=== PATIENT | female | born 1990 | race Caucasian/White ===

== ENCOUNTER 2017-01-18 12:13 | Emergency (ER) | payer BC ==
[~2017-01-18] VITALS: Ht 167.6 cm; Wt 121.0 kg
[2017-01-18 12:15] VITALS: TEMP 36.9; Ht 167.6 cm; Wt 121.0 kg
[2017-01-18] MEDS ORDERED: SODIUM CHLORIDE 0.9% 1000ML 1,000 ML IV STA (13:08)
[2017-01-18] MEDS ORDERED: ONDANSETRON INJ 2 MG/ML 2 ML VIAL IV STA (13:08)
[2017-01-18] MEDS ORDERED: MoRPHine SULFATE 10 MG/ML CARP/VIAL IV PRN (13:15)
[2017-01-18] MEDS ORDERED: OPTIRAY 320 IV PRN (13:15)
[2017-01-18 13:28] LABS: URINE APPEARANCE CLEAR (CLEAR); URINE BILIRUBIN NEG (NEG); URINE COLOR YELLOW; URINE EPITHELIAL CELL AUTO >30 /lpf (0-5); URINE NITRITE NEG (NEG); URINE SPECIFIC GRAVITY 1.012 (1.000-1.030); UROBILINOGEN NEG (NEG)
[2017-01-18] MEDS ORDERED: MoRPHine SULFATE 4 MG/ML 1 ML CARP\\VIAL IV PRN (13:30)
[2017-01-18 13:31] LABS: MANUAL MICROSCOPIC REQUIRED? NO; REVIEW REQ? NO
[2017-01-18 14:14] LABS: BASO % 0.4 %; BASO ABS # 0.03 K/uL (0-0.2); COMPLETE YES; EOS % 4.5 %; HEMATOCRIT 39.4 % (37-47); IG% 0.1 %; LYMPH % 29.7 %; LYMPH ABS # 2.37 K/uL (1.2-3.4); MEAN CELL VOLUME 90.4 fL (80-100); MEAN CORPUSCULAR HEMOGLOBIN 30.5 pg (25-34); MEAN CORPUSCULAR HGB CONC 33.8 g/dl (32-36); MEAN PLATELET VOLUME 10.8 fL (7.4-10.4); MONO % 8.8 %; NEUT % 56.5 %; PLATELET COUNT 320 K/uL (130-400); RED BLOOD COUNT 4.36 M/uL (4.2-5.4); WHITE BLOOD COUNT 7.99 K/uL (4.8-10.8)
[2017-01-18 14:22] LABS: ALT/SGPT 33 U/L (12-78); AST/SGOT 19 U/L (15-37); BLOOD UREA NITROGEN 8 mg/dl (7-18); BUN/CREATININE RATIO 13.6 (10-20); CALCIUM 8.9 mg/dl (8.5-10.1); CARBON DIOXIDE 27 mmol/L (21-32); CHLORIDE 106 mmol/L (98-107); CREATININE 0.58 mg/dl (0.60-1.20); GLUCOSE 82 mg/dl (70-99); POTASSIUM 3.9 mmol/L (3.5-5.1); SODIUM 137 mmol/L (136-145)
[2017-01-18 14:25] LABS: ALKALINE PHOSPHATASE 89 U/L (45-117)
--- NOTE | 2017-01-18 14:29 | DIAGNOSTIC IMAGING REPORT ---
ULTRASOUND OF THE PELVIS CLINICAL HISTORY: Right pelvic pain. COMPARISON STUDY: No priors. TECHNIQUE: Real-time, grayscale, and color flow sonography of the pelvis is performed transabdominally. Images are reviewed in the transverse and longitudinal planes. The patient declined the endovaginal examination. FINDINGS: Uterus: The uterus is normal in size and echotexture, measuring 9.2 x 3.5 x 5.1 cm. Endometrium: The endometrium is normal in appearance, and the endometrial stripe is normal in thickness measuring up to 0.7 cm. Ovaries: The ovaries are normal in size and morphology. The right ovary measures 3.8 x 2.5 x 3.2 cm and the left ovary measures 2.7 x 1.5 x 2.0 cm. A follicle is noted on the right. Normal Doppler waveforms are shown within both ovaries. Pelvis: There is no free fluid in the cul-de-sac. No concerning adnexal lesion is seen. IMPRESSION: 1. Unremarkable transabdominal sonographic assessment of the pelvis. 2. The patient declined the endovaginal examination. Electronically signed by: Doc Brandt M.D. 01/18/2017 2:28 PM Dictated Date/Time: 01/18/2017 2:27 PM
[2017-01-18] MEDS ORDERED: LEVE750T PO (14:41)
--- NOTE | 2017-01-18 16:10 | DIAGNOSTIC IMAGING REPORT ---
ABD/PELVIS IV AND ORAL CONT CT DOSE: 1077.42 mGycm HISTORY: Pain ABDOMINAL PAIN/GI TECHNIQUE: Multiaxial CT images of the abdomen and pelvis were performed following the use of intravenous and oral contrast. A dose lowering technique was utilized adhering to the principles of ALARA. COMPARISON STUDY: Pelvic ultrasound same date FINDINGS: Lung bases are clear. Liver is uniform throughout. Gallbladder is negative for distention. High density splenic cyst measuring 11 cm. No significant perisplenic fluid is present. Kidneys enhance uniformly. Bowel pattern is nonobstructive. The appendix is normal. Uterus is anteflexed. 1.8 cm right ovarian cyst. IMPRESSION: 1. 1.8 cm right ovarian cyst. 2. Normal appendix. 3. 11 cm hyperdense splenic cyst. 4. Otherwise normal study The above report was generated using voice recognition software. It may contain grammatical, syntax or spelling errors. Electronically signed by: Orville Paris M.D. 01/18/2017 4:09 PM Dictated Date/Time: 01/18/2017 4:05 PM
[2017-01-18 16:32] VITALS: BP 126/48; PULSE 67; O2SAT 100
--- NOTE | 2017-01-18 20:15 | EMERGENCY ROOM VISIT NOTE ---
ED Visit Note First contact with patient: 12:20 Chief Complaint: Abdominal pain. History of Present Illness: Ms. Bain is a 26 year-old white female who ambulates into the ED accompanied by male friend complaining of right lower quadrant abdominal pain. Historically patient reports significant past medical history and denies asked to intestinal disorders and surgeries. Patient was referred to the ED by [facility] for her right lower quadrant pain. Patient reports a gradual onset of right lower quadrant abdominal pain that started approximately 6 hours ago. Since that time the pain has been constant. The pain is currently described as sharp. The pain is nonradiating. She rates her discomfort 6/10. The pain worsens with standing and ambulating and is improved by lying semierect. She has not taken any medications for pain prior to arrival at the hospital. Associated with her pain she's been nauseated but has not vomited. Patient denies fevers, chills, sweats, skin eruptions, skin color changes, upper respiratory tract symptoms, shortness of breath, chest pain, diarrhea, constipation, rectal bleeding, black/tarry stools, urinary symptoms, hematuria, vaginal bleeding, vaginal discharge, back/flank pain. Review of Systems: As noted above in history of present illness. All body systems were reviewed and found to be negative as noted above. Past Medical History: Seizure disorder, kidney stones, status post laminectomy. Current Medications: Levetiracetam. Allergies to Medications: Patient denies. Social History: Patient is currently employed; she feels safe in her home environment; she denies tobacco use and admits to alcohol use. Physical Examination: Vital Signs: Date Time Temp Pulse Resp B/P (MAP) Pulse Ox O2 Delivery O2 Flow Rate FiO2 01/18/17 14:29 67 18 120/84 100 Room Air 01/18/17 13:19 76 16 124/84 98 Room Air 01/18/17 12:15 36.9 76 18 143/98 98 Room Air GENERAL: 26-year-old female in mild to moderate distress due to pain, nontoxic- appearing, afebrile and hemodynamically stable. NEUROLOGICAL: Awake, alert and oriented to person, place and time. Answering questions appropriately and following commands. Normal gait. Good hand eye coordination. SKIN: Warm, dry and pink. No soft tissue eruptions or trauma noted. HEENT: Atraumatic and normocephalic. PERRL. Sclera white and conjunctiva pink. Oral cavity moist and pink. Pharynx is nonerythematous or edematous. Speech normal. No lymphadenopathy. Trachea midline. No jugular venous distention. BACK: No tenderness over the bony spine. No CVA tenderness. THORAX: Lungs sounds are clear to auscultation and equal bilaterally with symmetrical chest wall. No wheezing, rales or rhonchi. No crepitus, tenderness , subcutaneous air or deformities noted. HEART: Regular rate and rhythm. No gallops, rubs or murmurs are appreciated. ABDOMEN: Obese and soft with mild tenderness in the mid quadrant area. No tenderness or guarding over McBurney's point. Positive bowel sounds in all quadrants. No guarding, rigidity or organomegaly. EXTREMITIES: Moves all extremities well on command and with purpose. All distal neurovascular statuses are intact and equal bilaterally. ED Course: Patient is assessed as noted above. Laboratory Testing: Test 01/18/17 12:34 01/18/17 12:35 Range/Units Urine Color YELLOW Urine Appearance CLEAR CLEAR Urine pH 7.0 4.5-7.5 Urine Specific [place] 1.012 1.000-1.030 Urine Protein NEG NEG Urine Glucose (UA) NEG NEG Urine Ketones NEG NEG Urine Occult Blood NEG NEG Urine Nitrite NEG NEG Urine Bilirubin NEG NEG Urine Urobilinogen NEG NEG Urine Leukocyte Esterase TRACE NEG Urine WBC (Auto) 5-10 0-5 /hpf Urine RBC (Auto) 0-4 0-4 /hpf Urine Hyaline Casts (Auto) 1-5 0-5 /lpf Urine Epithelial Cells (Auto) >30 0-5 /lpf Urine Bacteria (Auto) 1+ NEG Urine Test NEG NEG White Blood Count 7.99 4.8-10.8 K/uL Red Blood Count 4.36 4.2-5.4 M/uL Hemoglobin 13.3 12.0-16.0 g/dL Hematocrit 39.4 37-47 % Mean Corpuscular Volume 90.4 80-100 fL Mean Corpuscular Hemoglobin 30.5 25-34 pg Mean Corpuscular Hemoglobin Concent 33.8 32-36 g/dl Platelet Count 320 130-400 K/uL Mean Platelet Volume 10.8 7.4-10.4 fL Neutrophils (%) (Auto) 56.5 % Lymphocytes (%) (Auto) 29.7 % Monocytes (%) (Auto) 8.8 % Eosinophils (%) (Auto) 4.5 % Basophils (%) (Auto) 0.4 % Neutrophils # (Auto) 4.52 1.4-6.5 K/uL Lymphocytes # (Auto) 2.37 1.2-3.4 K/uL Monocytes # (Auto) 0.70 0.11-0.59 K/uL Eosinophils # (Auto) 0.36 0-0.5 K/uL Basophils # (Auto) 0.03 0-0.2 K/uL RDW Standard Deviation 42.1 36.4-46.3 fL RDW Coefficient of Variation 12.9 11.5-14.5 % Immature Granulocyte % (Auto) 0.1 % Immature Granulocyte # (Auto) 0.01 0.00-0.02 K/uL Sodium Level 137 136-145 mmol/L Potassium Level 3.9 3.5-5.1 mmol/L Chloride Level 106 98-107 mmol/L Carbon Dioxide Level 27 21-32 mmol/L Anion Gap 4.0 3-11 mmol/L Blood Urea Nitrogen 8 7-18 mg/dl Creatinine 0.58 0.60-1.20 mg/dl Est Creatinine Clear Calc Drug Dose 191.4 ml/min Estimated GFR () 145.4 Estimated GFR (Non- 125.4 BUN/Creatinine Ratio 13.6 10-20 Random Glucose 82 70-99 mg/dl Calcium Level 8.9 8.5-10.1 mg/dl Total Bilirubin 0.3 0.2-1 mg/dl Direct Bilirubin < 0.1 0-0.2 mg/dl Aspartate Amino Transf (AST/SGOT) 19 15-37 U/L Alanine Aminotransferase (ALT/SGPT) 33 12-78 U/L Alkaline Phosphatase 89 45-117 U/L Total Protein 7.0 6.4-8.2 gm/dl Albumin 3.7 3.4-5.0 gm/dl Lipase 213 73-393 U/L Pelvic Ultrasound: Was reviewed by myself and read by the radiologist showing unremarkable ultrasound; patient elected to decline her endovaginal examination. Contrast Abdominal/Pelvic CT: Was reviewed by myself and shows a 1.8 cm right ovarian cyst, normal-appearing study and 11 cm hyperdense splenic cyst, normal- appearing lung bases, liver and gallbladder. Patient was hydrated with normal saline and initially received 4 mg of Zofran IV and 4 mg of morphine IV for her symptoms. Patient was reassessed multiple times during her stay in emergency department. Patient received an additional 4 mg of morphine IV for pain. Patient's case was reviewed with Dr. Laura; we agreed on diagnostic approach, treatment, disposition and plan. Patient was educated about today's findings and instructed on her treatment plan ; she verbalizes understanding and agreement with this plan. Clinical Impression: Acute right lower quadrant abdominal pain Decision-Making: Initially my differential diagnosis I considered appendicitis, ovarian cyst rupture, ectopic , ovarian torsion, constipation, bowel obstruction and other causes. Disposition: Patient discharged home in stable condition accompanied by her mother; prior to departure she was reassessed and subjectively reported she was feeling the same. Plan: Patient was encouraged to alternate ibuprofen and acetaminophen every 3 hours as needed for pain. Patient was encouraged to stay well-hydrated. Patient is encouraged use a light diet for the next 48 hours. Patient was encouraged to follow-up with primary care provider for recheck in 12 -16 hours; she was encouraged return to the ED she could not follow-up. Additionally patient was encouraged return the ED sooner for worsening/ uncontrolled pain, vomiting, fevers or any new/concerning symptoms.
== END 2017-01-18 16:33 | disposition home or self-care (01) ==
LOC: C.EDB 12:15 → C.EDC 16:33
DX: R10.31 Right lower quadrant pain (principal); G40.909 Epilepsy, unspecified, not intractable, without status epilepticus; Z87.442 Personal history of urinary calculi; Z79.899 Other long term (current) drug therapy

== ENCOUNTER 2019-03-12 07:30 | Inpatient (IN) ==
--- NOTE | 2019-03-18 14:18 | History & Physical Report ---
Date of Service March 18, 2019 Assessment & Plan (1) Delivery by elective section: section. The patient was counseled to the nature of the procedure including alternatives such as labor. Risks were discussed including bleeding infection injury to bowel bladder ureter vessels and even baby. Deep Vein thrombosis, pulmonary embolus discussed. Breakdown of incision reviewed. Deep vein thrombosis pulmonary embolus hernia and failure of the incision to heal were discussed Patient verbalized understanding of this and was given ample time to ask questions Note, I reviewed the recommended option of vaginal delivery, she declines History of Present Illness Chief Complaint: term who desires elective primary section related to back and epilepsy issues. patient understands that a vaginal delivery is recommended obstetrically, but is adamant about C/S Primary Care Provider: NO PCP Allergies Allergy/AdvReac Type Severity Reaction Status Date / Time morphine AdvReac Flushing/chest Verified 03/05/19 13:53 pain Home Medications Home Medications Medication Instructions Recorded Confirmed Type multivitamin 1 tab PO DAILY 03/01/18 03/16/19 History doxylamine succinate 25 mg tablet 25 mg PO PRN PRN tab 09/11/18 03/16/19 History acetone (urine) test #50 ea 01/25/19 03/16/19 Rx blood sugar diagnostic #100 ea 01/25/19 03/16/19 Rx blood-glucose meter #1 ea 01/25/19 03/16/19 Rx lancets #102 ea 01/25/19 03/16/19 Rx acetaminophen [Tylenol] 325 mg PO Q6H PRN 02/16/19 03/16/19 History levetiracetam 750 mg 2,250 mg .ROUTE HS 30 Days #90 tab 03/15/19 03/16/19 Rx tablet,extended release 24 hr Patient History Medical History Abnormal biochemical finding on screening of mother Carpal tunnel syndrome Chronic fatigue Degenerative disc disease Encounter for pre-operative examination Epilepsy Last seizure 3-4 years ago History of migraine Hx of varicella Lower back pain s/p laminectomy Rupture of spleen s/p splenectomy 2018 TMJ click Surgical History H/O laminectomy (Resolved) 2012 lumbar History of esophagogastroduodenoscopy (EGD) History of splenectomy Hx of wisdom tooth extraction S/P tonsillectomy Family History Grandmother (Paternal) Cardiac disorder Grandmother (Paternal) No problems noted. Grandfather (Paternal) Cardiac disorder Other Leukemia Social History Preferred Language: Welsh Communication Ability: Effective Advanced Seal Delivery System Required: No Beliefs That Will Affect Care: None Current Living Situation: Significant Other Feels Safe at Home: Yes Smoking Status: Never smoker Second Hand Exposure: No ; Hx Alcohol Use: No Hx Substance Use: No Physical Exam Constitutional: WD/WN, vitals as above well developed and well nourished Respiratory: normal respiratory effort, lungs clear to auscultation normal respiratory effort Cardiovascular: RRR, no murmur, no edema Chest (Breasts): normal inspection/palpation of breasts Breast: normal i nspection of breasts, normal inspection of axillae, normal palpation of breasts and normal palpation of axillae Gastrointestinal (Abdomen): normal bowel sounds, soft, nontender, no hepatosplenomegaly Genitourinary: OB Exam Abdomen: + fundal height and + heart tones OB Exam Monitor Tracing: + external FHT monitor used Coding Level of Care Code None Diagnoses Delivery by elective section O82
[2019-03-19] MEDS ORDERED: LACTATED RINGER'S 1,000 ML IV SCH ×2 (06:00→13:04)
[2019-03-19] MEDS ORDERED: CEFAZOLIN 3,000 MG in DEXTROSE 5% 50 ML IV SCH (06:00)
[2019-03-19] MEDS ORDERED: CITRIC ACID/SODIUM CITRATE 15 ML UDC PO SCH (06:00)
[2019-03-19 07:44] LABS: Basophils # (auto) 0.02 K/uL (0-0.2); Basophils % (auto) 0.1 %; Eosinophils # (auto) 0.25 K/uL (0-0.5); Eosinophils % (auto) 1.8 %; Hematocrit (blood only) 34.9 % (37-47); Hemoglobin 12.3 g/dL (12.0-16.0); Immature Granulocytes # (auto) 0.04 K/uL (0.00-0.02); Immature Granulocytes % (auto) 0.3 %; Lymphocytes # (auto) 2.79 K/uL (1.2-3.4); Lymphocytes % (auto) 20.1 %; Mean Corpuscular Volume 90.9 fL (80-100); Mean Platelet Volume 9.7 fL (7.4-10.4); Monocytes # (auto) 1.52 K/uL (0.11-0.59); Monocytes % (auto) 10.9 %; Neutrophils # (auto) 9.27 K/uL (1.4-6.5); Neutrophils % (auto) 66.8 %; Platelet Count 598 K/uL (130-400); RDW Coefficient of Variation 14.2 % (11.5-14.5); RDW Standard Deviation 47.2 fL (36.4-46.3); Red Blood Count 3.84 M/uL (4.2-5.4); White Blood Count 13.89 K/uL (4.8-10.8)
[2019-03-19 07:45] LABS: Mean Corpuscular Hgb Conc 35.2 g/dL (32-36)
--- NOTE | 2019-03-19 08:52 | History & Physical Bridge Note ---
Date of Service March 19, 2019 History & Physical Bridge Note I have examined the patient, reviewed the History & Physical and in the interval since the performance of the History & Physical I have noted the following changes of clinical significance: no changes noted
[2019-03-19] MEDS ORDERED: MoRPHine SULFATE PF 1 MG/ML 10 ML AMP/VIAL ONE (09:53)
[2019-03-19] MEDS ORDERED: fentaNYL citrate 100 MCG/2 ML VIAL ONE (09:53)
--- NOTE | 2019-03-19 10:48 | Operative Report ---
PG Post Operative Report Pre & Post Diagnosis Operation Date: 03/19/19 08:50 Pre-Op Diagnosis: Elective Primary Section Post-Op Diagnosis: Elective Primary Section with low transvese section and delivery of live male child at 1022 I identified the patient and participated in the time-out.: Yes Procedure Operation Date: 03/19/19 08:50 Actual Procedures p Section(Bilateral) - Carol Jung MD, FACOG Surgeon Carol Jung MD, FACOG Aircraft Inspector Dr. Bonilla Estimated Blood Loss 500 Findings Consistent with Post-Op Diagnosis Specimens cord gases, blood Description of Procedure Regional anesthetic was given by anesthesia patient had a Dawson catheter inserted by nursing patient was prepped and draped in supine position with a leftward tilt preoperative antibiotics were given timeout performed Pickups with teeth were used to test the skin site and it was found adequate for incision scalpel used to make a Pfannenstiel incision cutting down through subcutaneous fat through the fascia fascia was then dissected laterally with the curved Mcgill's fascia was released superiorly and inferiorly from the rectus muscles with the curved Mcgill scissors, rectus muscle split peritoneal cavity entered in a superior location. Opening enlarged to allow exposure bladder retractor placed Metzenbaums used to dissect away the bladder flap low segment transverse incision made on the uterus with scalpel entry was done bluntly with the logging tractor operator swamp's finger hysterotomy incision extended with the logging tractor operator swamp's finger in the usual fashion baby was delivered then by flexion of the head and pressure from the urology physician assistant on the abdomen mouth and then nares were suctioned baby was then delivered fully without difficulty without excessive force live vigorous cord clamped and cut cord gases obtained cord blood obtained placenta removed manually within ensured all placenta removed with a moist lap sponge uterus exteriorized IV Pitocin had been started by anesthesia and uterine tone improved. The uterus was closed in 2 layers first layer and 0 Monocryl running locked second layer 0 Monocryl nonlocked after generous irrigation and suction of the cul-de-sac and bladder flap regions hemostasis was excellent uterus was placed back in the peritoneal cavity and hemostasis was excellent rectus muscles were inspected and found to be dry fascia closed with 0 Vicryl subcutaneous fat closed with 3-0 Vicryl prior to this subcutaneous fat was irrigated skin closed with 4-0 subcuticular Monocryl incision dressing applied ZAID. I attest to the content of the Intraoperative Record and any orders documented therein. Any exceptions are noted below.
[2019-03-19 10:58] LABS: Base Excess Cord Arterial Bld -7.7 mEq/L (-9-1.8); CO2 Cord Arterial Blood 99 mmHg (39.1-73.5); HCO3 Cord Arterial Blood 26 mmol/L (19.7-28.5); PO2 Cord Arterial Blood 13 mmHg (4.1-31.7); pH Cord Arterial Blood 7.04 (7.1-7.38)
[2019-03-19 11:02] LABS: Base Excess Cord Venous Blood -6.5 mEq/L (-7.7-1.9); Cord Venous Blood HCO3 26 mmol/L (18.4-26.8); Cord Venous Blood PCO2 88 mmHg (30.4-57.2); Cord Venous Blood PO2 18 mmHg (14.1-43.3); Cord Venous Blood pH 7.09 (7.20-7.44)
[2019-03-19 11:04] LABS: Oxygen Sat Cord Arterial Blood < 60.0 % (<60)
[2019-03-19 11:05] LABS: O2 Saturation Cord Venous Bld < 60.0 % (<68)
[2019-03-19] MEDS ORDERED: KETOROLAC 30 MG/ML VIAL ONE (12:50)
[2019-03-19] MEDS ORDERED: PHENYLEPHRINE 100MCG/ML 5ML SYR ONE (12:50)
[2019-03-19] MEDS ORDERED: ONDANSETRON INJ 2 MG/ML 2 ML VIAL ONE (12:50)
[2019-03-19] MEDS ORDERED: OXYTOCIN 10 UNITS/ML VIAL ONE (12:50)
[2019-03-19] MEDS ORDERED: ONDANSETRON INJ 2 MG/ML 2 ML VIAL IV PRN (13:02)
[2019-03-19] MEDS ORDERED: BLOOD SUGAR DIAGNOSTIC MS SCH (13:04)
[2019-03-19] MEDS ORDERED: SENNA 8.6 MG TAB PO PRN (13:04)
[2019-03-19] MEDS ORDERED: BENZOCAINE 20% AER SPR 82.5 GM CAN EXT PRN (13:04)
[2019-03-19] MEDS ORDERED: DIPHTHERIA/TETANUS/PERTUSSIS 0.5 ML SYR/VIAL IM ONE (13:04)
[2019-03-19] MEDS ORDERED: SUPERCREAM 0.870% 15 GM JAR EXT PRN (13:04)
[2019-03-19] MEDS ORDERED: HYDROCORTISONE ACETATE 25 MG SUPP PR PRN (13:04)
[2019-03-19] MEDS ORDERED: [UNRECOGNIZED DRUG - SUPPLY] SCH (13:04)
[2019-03-19] MEDS ORDERED: LANCETS SCH (13:04)
[2019-03-19] MEDS ORDERED: PROMETHAZINE HCL 6.25 MG in SODIUM CHLORIDE 0.9% 50 ML IV PRN (13:07)
[2019-03-19] MEDS ORDERED: ePHEDrine sulfate 50 MG/ML AMP IV PRN (13:08)
[2019-03-19] MEDS ORDERED: DiphenhydrAMINE HCL 50 MG/ML VIAL IV PRN (13:08)
[2019-03-19] MEDS ORDERED: NALOXONE HCL 0.4 MG/1 ML VIAL/CARP IV PRN (13:09)
[2019-03-19] MEDS ORDERED: NALOXONE HCL 1 MG in SODIUM CHLORIDE 0.9% 1000ML 1,000 ML IV PRN (13:09)
[2019-03-19] MEDS ORDERED: LACTATED RINGER'S 500 ML IV PRN (13:09)
[2019-03-19] MEDS ORDERED: NALBUPHINE HCL INJ 10 MG/ML AMP IV PRN (13:10)
[2019-03-19] MEDS ORDERED: NALOXONE HCL 0.08 MG in SYRINGE 1.8 ML IV PRN (13:10)
[2019-03-19] MEDS ORDERED: MoRPHine SULFATE 2 MG/ML CARP IV PRN (13:11)
[2019-03-19] MEDS ORDERED: SODIUM CHLORIDE 0.9% 1000ML 1,000 ML IV SCH (13:15)
[2019-03-19] MEDS ORDERED: NO NARCOTICS OR SEDATIVES SCH (13:15)
[2019-03-19] MEDS: HYDROmorphone INJ 1 MG/ML SYRINGE IV PRN (13:57)
[2019-03-19] MEDS: OXYTOCIN 20 UNITS in LACTATED RINGER'S 1,000 ML IV SCH ×2 (15:30→23:52)
[2019-03-19] MEDS: KETOROLAC 30 MG/ML VIAL IV PRN (20:21)
[2019-03-19] MEDS: levETIRAcetam 500 MG TAB PO SCH (20:56)
[2019-03-19] MEDS: levETIRAcetam 250 MG TAB PO SCH (20:56)
[2019-03-19] MEDS: DOCUSATE SODIUM 100 MG CAP PO SCH (20:56)
[2019-03-20] MEDS: HYDROmorphone INJ 1 MG/ML SYRINGE IV PRN (01:06)
[2019-03-20] MEDS: KETOROLAC 30 MG/ML VIAL IV PRN (04:19)
[2019-03-20] MEDS ORDERED: DiphenhydrAMINE HCL 50 MG/ML VIAL IV PRN (05:29)
[2019-03-20] MEDS ORDERED: DC INTRASPINAL MORPHINE SCH (05:29)
[2019-03-20] MEDS ORDERED: PROMETHAZINE HCL 25 MG in SODIUM CHLORIDE 0.9% 50 ML IV PRN (05:29)
[2019-03-20] MEDS ORDERED: ONDANSETRON INJ 2 MG/ML 2 ML VIAL IV PRN (05:29)
[2019-03-20] MEDS ORDERED: KETOROLAC 30 MG/ML VIAL IV PRN (05:29)
--- NOTE | 2019-03-20 06:19 | Obstetrical Progress Note ---
Date of Service March 20, 2019 Assessment & Plan (1) Status post : Aminata is a 29 yo on POD 1 after elective c/s at term - GBS -, Rh+, Rubella equivocal -Vitals reviewed and WNL - will order MMR -patient is doing clinically well patient recovering normally - After discharge will have [address] Jung. Supervising Physician Co-Signing Physician Notes Resident Physician Supervision Note: I was present with Dr. johnson during the history and exam. I discussed the case with the resident and agree with the findings and plan as documented in the note. Any exceptions or clarifications are listed here: [None] Documented By: Carol Jung MD, FACOG Subjective Ambulation: ambulating normally Voiding: samayoa removed, awaiting self void trial Passing Gas:: note yet Diet Tolerance:: regular diet Lochia:: Small Feeding Type:: breast feeding (pumping) Review of Systems Constitutional: no fever, no chills and no sweats Respiratory: no cough and no dyspnea Cardiovascular: no chest pain and no palpitations Gastrointestinal: no nausea and no vomiting Genitourinary: no dysuria and no urinary frequency Neurologic: no headache(s) Physical Exam Constitutional: WD/WN, vitals as above no acute distress Respiratory: normal respiratory effort, lungs clear to auscultation does not use accessory muscles Auscultation: no crackles, no rhonchi, no wheezes and no pleural rub Cardiovascular: Rate/Rhythm: regular rate and regular rhythm Heart Sounds: normal S1 and normal S2; no gallop, no murmur and no cardiac rub Extremities: no calf tenderness and no pedal edema Gastrointestinal (Abdomen): Inspection/Auscultation: normal bowel sounds; abdomen not distended Percussion/Palpation: abdomen soft surgical incision: ZAID dressing in place; minimal dried blood visible; no warmth; appropriate post-op tenderness Genitourinary: Uterus: fundus firm, palpable 1 cm below the umbilicus Results & Data Vital Signs (Past 12 Hours) Vital Signs Temp Pulse Resp Pulse Ox 03/20/19 03:25 37.2 C 90 18 98 03/20/19 03:00 18 98 03/20/19 02:00 18 96 03/20/19 01:00 18 97 03/20/19 00:00 18 97 03/19/19 23:00 18 98 03/19/19 22:45 37.2 C 91 H 18 97 03/19/19 22:00 18 97 03/19/19 21:00 18 97 03/19/19 20:00 18 98 03/19/19 19:50 37.4 C 89 18 97 03/19/19 19:00 18 97 03/19/19 18:45 20 96 Resident Activity Tracking Resident Involvement: Resident Care Provided Care Provided: OB Delivery
[2019-03-20 07:32] LABS: Basophils # (auto) 0.03 K/uL (0-0.2); Basophils % (auto) 0.2 %; Eosinophils # (auto) 0.32 K/uL (0-0.5); Eosinophils % (auto) 1.9 %; Hematocrit (blood only) 34.1 % (37-47); Hemoglobin 11.9 g/dL (12.0-16.0); Immature Granulocytes # (auto) 0.05 K/uL (0.00-0.02); Immature Granulocytes % (auto) 0.3 %; Lymphocytes # (auto) 2.86 K/uL (1.2-3.4); Lymphocytes % (auto) 16.9 %; Mean Corpuscular Hemoglobin 31.9 pg (25-34); Mean Corpuscular Hgb Conc 34.9 g/dL (32-36); Mean Corpuscular Volume 91.4 fL (80-100); Mean Platelet Volume 9.5 fL (7.4-10.4); Monocytes # (auto) 1.95 K/uL (0.11-0.59); Monocytes % (auto) 11.5 %; Neutrophils # (auto) 11.72 K/uL (1.4-6.5); Neutrophils % (auto) 69.2 %; Platelet Count 568 K/uL (130-400); RDW Coefficient of Variation 14.4 % (11.5-14.5); RDW Standard Deviation 47.8 fL (36.4-46.3); Red Blood Count 3.73 M/uL (4.2-5.4); White Blood Count 16.93 K/uL (4.8-10.8)
[2019-03-20] MEDS: PRENATAL VITAMIN 1 TAB PO SCH (07:34)
[2019-03-20] MEDS: DOCUSATE SODIUM 100 MG CAP PO SCH ×2 (07:34→21:26)
[2019-03-20] MEDS ORDERED: MEASLES, MUMPS & RUBELLA VIRUS VIAL SQ ONE (07:44)
[2019-03-20] MEDS: OXYCODONE/ACETAMINOPHEN 5mg/325mg TAB PO PRN ×4 (08:10→21:27)
[2019-03-20] MEDS: IBUPROFEN 600 MG TAB PO PRN ×4 (08:10→21:27)
--- NOTE | 2019-03-20 08:23 | Anesthesiology Progress Note ---
Date of Service March 20, 2019 Anesthesia Post Procedure Vital Signs Vital Signs: Temp Pulse Pulse Resp BP BP Pulse Ox 03/20/19 08:00 37.1 C 99 H 18 136/78 95 03/20/19 05:00 18 98 03/20/19 04:00 18 97 03/20/19 03:25 37.2 C 90 18 98 03/20/19 03:00 18 98 03/20/19 02:00 18 96 03/20/19 01:00 18 97 03/20/19 00:00 18 97 03/19/19 23:00 18 98 03/19/19 22:45 37.2 C 91 H 18 97 03/19/19 22:00 18 97 03/19/19 21:00 18 97 03/19/19 20:00 18 98 03/19/19 19:50 37.4 C 89 18 97 03/19/19 19:00 18 97 03/19/19 18:45 20 96 03/19/19 17:40 20 96 03/19/19 16:40 18 96 03/19/19 15:40 18 96 03/19/19 15:29 94 H 95 03/19/19 15:24 91 H 96 03/19/19 15:19 92 H 96 03/19/19 15:14 91 H 95 03/19/19 15:09 84 95 03/19/19 15:04 93 H 95 03/19/19 14:59 36.8 C 88 20 94 03/19/19 14:57 88 114/73 03/19/19 14:54 93 H 96 03/19/19 14:49 89 96 03/19/19 14:44 97 H 95 03/19/19 14:39 87 95 03/19/19 14:34 92 H 94 03/19/19 14:32 95 H 82 L 03/19/19 14:29 87 96 03/19/19 14:24 88 95 03/19/19 14:21 93 H 94 03/19/19 14:19 79 96 03/19/19 14:14 78 96 03/19/19 14:09 85 95 03/19/19 14:08 83 128/77 94 03/19/19 14:04 80 95 03/19/19 13:59 78 96 03/19/19 13:58 77 116/72 03/19/19 13:55 20 03/19/19 13:54 76 96 03/19/19 13:49 83 97 03/19/19 13:48 80 120/76 03/19/19 13:44 82 96 03/19/19 13:39 78 97 03/19/19 13:38 79 122/79 03/19/19 13:34 80 96 03/19/19 13:29 81 97 03/19/19 13:28 75 120/76 03/19/19 13:24 79 96 03/19/19 13:19 77 118/77 97 03/19/19 13:14 79 97 03/19/19 13:09 73 97 03/19/19 13:08 74 117/71 03/19/19 13:04 70 96 03/19/19 12:59 79 96 03/19/19 12:58 81 123/74 03/19/19 12:55 36.6 C 20 03/19/19 12:54 74 96 03/19/19 12:49 75 96 03/19/19 12:48 71 119/68 03/19/19 12:44 80 96 03/19/19 12:39 85 95 03/19/19 12:38 87 118/65 94 03/19/19 12:34 81 96 03/19/19 12:29 81 95 03/19/19 12:28 76 116/68 03/19/19 12:25 20 03/19/19 12:24 77 97 03/19/19 12:19 77 98 03/19/19 12:18 78 124/80 03/19/19 12:14 73 97 03/19/19 12:12 81 94 03/19/19 12:09 71 99 03/19/19 12:08 83 121/82 03/19/19 12:04 71 98 03/19/19 11:59 71 98 03/19/19 11:58 72 117/73 03/19/19 11:56 36.3 C L 20 03/19/19 11:55 20 03/19/19 11:54 73 96 03/19/19 11:49 68 100 03/19/19 11:48 68 116/73 03/19/19 11:47 71 93 03/19/19 11:45 20 03/19/19 11:44 67 98 03/19/19 11:39 67 119/78 98 03/19/19 11:35 20 03/19/19 11:34 72 99 03/19/19 11:29 72 114/87 98 03/19/19 11:25 68 20 119/77 03/19/19 11:24 71 100 03/19/19 11:19 70 100 03/19/19 11:15 20 03/19/19 11:14 71 100 03/19/19 11:09 71 100 03/19/19 11:08 71 129/72 03/19/19 11:05 20 03/19/19 11:04 71 100 03/19/19 10:59 74 100 03/19/19 10:58 78 121/81 03/19/19 10:55 36.6 C 20 Pain Intensity Bilateral Lower Abdomen: Pain Intensity: 3
--- NOTE | 2019-03-20 08:52 | Communication Note ---
Date of Service: March 20, 2019 Pt. is s/p csec x 1 day. Pt had a SAB. Pt is w/o c/o H/A, nor any other neurologic complaints.Pt has been up and ambulating.
[2019-03-20] MEDS ORDERED: MULTIVITAMIN TAB PO SCH (09:00)
[2019-03-20] MEDS ORDERED: bisacodyL 5 MG TABEC PO SCH (20:00)
[2019-03-20] MEDS: levETIRAcetam 250 MG TAB PO SCH (21:27)
[2019-03-20] MEDS: levETIRAcetam 500 MG TAB PO SCH (21:27)
[2019-03-21] MEDS: OXYCODONE/ACETAMINOPHEN 5mg/325mg TAB PO PRN ×5 (01:41→20:19)
[2019-03-21] MEDS: IBUPROFEN 600 MG TAB PO PRN ×5 (01:43→20:18)
[2019-03-21 05:53] LABS: Hematocrit (blood only) 30.9 % (37-47); Hemoglobin 10.4 g/dL (12.0-16.0)
--- NOTE | 2019-03-21 06:23 | Obstetrical Progress Note ---
Date of Service March 21, 2019 Assessment & Plan (1) Status post : Aminata is a 29 yo on POD 2 after elective c/s at term - GBS -, Rh+, Rubella equivocal -Vitals reviewed and WNL -MMR ordered; will be administered 2/6 -patient is doing clinically well patient recovering normally - After discharge will have [address] Jung. Supervising Physician Co-Signing Physician Notes Resident Physician Supervision Note: I was present with during the history and exam. I discussed the case with the resident and agree with the findings and plan as documented in the no te. Any exceptions or clarifications are listed here: Routine post-op care Documented By: Contreras Briscoe Jr, MD, FACOG Subjective Ambulation: ambulating normally Voiding: normal Passing Gas:: yes Diet Tolerance:: regular diet Lochia:: Small Feeding Type:: breast feeding (pumping) Review of Systems Constitutional: no fever, no chills and no sweats Respiratory: no cough and no dyspnea Cardiovascular: no chest pain and no palpitations Gastrointestinal: no nausea and no vomiting Genitourinary: no dysuria and no urinary frequency Neurologic: no headache(s) Physical Exam Constitutional: WD/WN, vitals as above no acute distress Respiratory: normal respiratory effort, lungs clear to auscultation does not use accessory muscles Auscultation: no crackles, no rhonchi, no wheezes and no pleural rub Cardiovascular: Rate/Rhythm: regular rate and regular rhythm Heart Sounds: normal S1 and normal S2; no gallop, no murmur and no cardiac rub Extremities: no calf tenderness and no pedal edema Gastrointestinal (Abdomen): Inspection/Auscultation: normal bowel sounds; abdomen not distended Percussion/Palpation: abdomen soft surgical incision: ZAID dressing in place; minimal dried blood visible; no warmth; appropriate post-op tenderness Genitourinary: Uterus: fundus firm, palpable 2 cm below the umbilicus Results & Data Vital Signs (Past 12 Hours) Vital Signs Temp Pulse Resp BP Pulse Ox 03/21/19 00:10 37.1 C 77 18 120/82 03/20/19 19:55 37.1 C 89 18 137/84 95 Resident Activity Tracking Resident Involvement: Resident Care Provided Care Provided: OB Delivery
[2019-03-21] MEDS ORDERED: bisacodyL 10 MG SUPP PR PRN (07:00)
[2019-03-21] MEDS: DOCUSATE SODIUM 100 MG CAP PO SCH (20:14)
[2019-03-21] MEDS: levETIRAcetam 500 MG TAB PO SCH (20:20)
[2019-03-21] MEDS: levETIRAcetam 250 MG TAB PO SCH (20:20)
[2019-03-22] MEDS: IBUPROFEN 600 MG TAB PO PRN ×3 (00:19→09:10)
[2019-03-22] MEDS: OXYCODONE/ACETAMINOPHEN 5mg/325mg TAB PO PRN ×3 (00:20→09:09)
--- NOTE | 2019-03-22 06:14 | Obstetrical Progress Note ---
Date of Service March 22, 2019 Assessment & Plan (1) Status post : Aminata is a 29 yo on POD 3 after elective c/s at term - GBS -, Rh+, Rubella equivocal -Vitals reviewed and WNL -MMR ordered; will be administered before discharge on 03/22 -patient is doing clinically well discharge instructions reviewed - After discharge will have [address] Jung. Supervising Physician Co-Signing Physician Notes Resident Physician Supervision Note: I was present with during the history and exam. I discussed the case with the resident and agree with the findings and plan as documented in the note. Any exceptions or clarifications are listed here: Routine post-op care Subjective Ambulation: ambulating normally Voiding: normal Passing Gas:: yes Diet Tolerance:: regular diet Lochia:: Small Feeding Type:: breast feeding (pumping) Review of Systems Constitutional: no fever, no chills and no sweats Respiratory: no cough and no dyspnea Cardiovascular: no chest pain and no palpitations Gastrointestinal: no nausea and no vomiting Genitourinary: no dysuria and no urinary frequency Neurologic: no headache(s) Physical Exam Constitutional: WD/WN, vitals as above no acute distress Respiratory: normal respiratory effort, lungs clear to auscultation does not use accessory muscles Auscultation: no crackles, no rhonchi, no wheezes and no pleural rub Cardiovascular: Rate/Rhythm: regular rate and regular rhythm Heart Sounds: normal S1 and normal S2; no gallop, no murmur and no cardiac rub Extremities: no calf tenderness and no pedal edema Gastrointestinal (Abdomen): Inspection/Auscultation: normal bowel sounds; abdomen not distended Percussion/Palpation: abdomen soft surgical incision: ZAID dressing in place; minimal dried blood visible; no warmth; appropriate post-op tenderness Genitourinary: Uterus: fundus firm, palpable 2 cm below the umbilicus Results & Data Vital Signs (Past 12 Hours) Vital Signs Temp Pulse Resp BP 03/21/19 23:15 36.7 C 83 18 138/82 Resident Activity Tracking Resident Involvement: Resident Care Provided Care Provided: OB Delivery
[2019-03-22] MEDS: PRENATAL VITAMIN 1 TAB PO SCH (08:26)
[2019-03-22] MEDS: DOCUSATE SODIUM 100 MG CAP PO SCH (08:26)
[2019-03-22 10:20] VITALS: BP 118/75; PULSE 86; TEMP 99; O2SAT 96
--- NOTE | 2019-03-23 07:55 | Discharge Summary ---
Date of Service March 23, 2019 Admission HPI Per Admitting Provider Admitted for elective C/S Admission Exam (Per Admitting) Constitutional WD/WN, vitals as above Gastrointestinal (Abdomen) normal bowel sounds, soft, nontender, no hepatosplenomegaly Genitourinary uterus non tender, incision CDI Discharge Data Consultations 03/19/19 07:16 Consult Anesthesiology Stat Procedures Performed Operation Date: 03/19/19 08:50 Actual Procedures p Section(Bilateral) - Carol Jung MD, FACOG Hospital Course (1) Status post : Postoperative from section patient meets discharge criteria as she is ambulating well tolerating an oral diet has minimal bleeding and no extremity pain. Discharge instructions were reviewed and prescriptions were sent to her pharmacy of choice patient advised to call with any concerns and follow-up in the office discussed Coding Level of Care Code None Diagnoses Status post Z98.891
== END 2019-03-22 13:30 | disposition home or self-care (01) | DRG 787 ==
LOC: 4S1 03-19 07:02 → 4S2 03-19 15:35 → EDSTATUS 03-23 07:30
DX: O26.893 Other specified pregnancy related conditions, third trimester; Z90.81 Acquired absence of spleen; Z98.890 Other specified postprocedural states; Z79.899 Other long term (current) drug therapy; O28.1 Abnormal biochemical finding on antenatal screening of mother; G40.909 Epilepsy, unspecified, not intractable, without status epilepticus; O99.354 Diseases of the nervous system complicating childbirth; O82 Encounter for cesarean delivery without indication; Z37.0 Single live birth; M51.36 Other intervertebral disc degeneration, lumbar region; Z88.5 Allergy status to narcotic agent